=== PATIENT | female | born 1995 | race Caucasian/White ===

== ENCOUNTER 2020-08-09 17:40 | Inpatient (IN) | payer OTHER, SELFPAY ==
[2020-08-09] VITALS (14 sets, daily range): BP systolic 86–123; BP diastolic 54–93; PULSE 72–104; RESP 18; TEMP 36.4; BMI 25.4
[2020-08-09 18:51] LABS: Basophils Percent Auto 0.4 % (0.2-1.2); Eosinophils Absolute Auto 0.1 K/mm3 (0-0.3); Eosinophils Percent Auto 0.9 % (0-4.4); Hematocrit 34.8 % (37.0-47.0); Hemoglobin 11.9 g/dL (12.0-15.0); Immature Granulocyte Percent A 0.9 % (0-0.5); Lymphocytes Absolute Auto 1.81 K/mm3 (0.9-3.2); Lymphocytes Percent Auto 16.8 % (18.3-44.2); Mean Corpuscular HGB Conc 34.2 g/dl (32-36); Mean Corpuscular Hemoglobin 30.1 pg (26-34); Mean Corpuscular Volume 87.9 fl (80-100); Monocytes Absolute Auto 0.9 K/mm3 (0.1-0.6); Monocytes Percent Auto 8.7 % (2.6-8.5); Neutrophils Absolute Auto 7.8 K/mm3 (1.3-6.7); Neutrophils Percent Auto 72.3 % (45.5-73.1); Platelet Count Result 178 k/mm3 (150-375); Red Blood Count 3.96 M/mm3 (4.2-5.4); Red Cell Distribution Width 13.2 % (11.5-14.5); White Blood Count 10.8 K/mm3 (4.5-10.0)
[2020-08-09] MEDS: DINOPROSTONE 10 MG VAG INSERT VAGINAL (18:56)
--- NOTE | 2020-08-09 19:09 | LDADM ---
This patient, Naheed Padilla, was admitted to Labor/Delivery/Recovery 104 on 08/09/20 at 17:40. Plans for labor, pain management and were discussed with patient. Patient/family oriented to hospital policies and general routines including ID bracelet, bed and alarms, visiting hours, pain management, procedures, bathroom and other care routines, personal items, smoking policy, room service/diet and guest tray routines, infant security routines, and visiting hours. Patient/Family are encouraged to report perceived risks to care and to ask questions if they do not understand what they are told or what they should do. See OBIX for further documentation.
[2020-08-09 19:43] LABS: HIV 1/2 Ab P24 Ag Result Negative (Negative)
[2020-08-09] MEDS: ZOLPIDEM TARTRATE (*CRX) 5 MG TABLET PO (22:02)
[2020-08-10] VITALS (72 sets, daily range): BP systolic 56–132; BP diastolic 27–97; PULSE 62–127; RESP 16–18; TEMP 36.3–36.9; O2SAT 72–100
--- NOTE | 2020-08-10 01:51 | WPDANESEPP ---
Anes - Eval Pre Procedure Procedure: Labor epidural Date/Time: 08/10/20 01:51 Surgeon: Susie Preop Diagnosis: Abd pain with contractions Pre Op Diagnosis: IOL Patient Data Age: 25 Gender: F Height: 5 ft 7 in Weight: 73.6 kg Last Vital Signs Temp 97.5 F L 08/10/20 01:37 Pulse 92 08/10/20 01:39 Resp 18 08/10/20 01:37 BP 101/61 08/10/20 01:39 Allergies Allergy/AdvReac Type Severity Reaction Status Date / Time No Known Allergies Allergy Verified 08/06/20 11:06 Home Medications Medication Instructions Recorded Confirmed Type prenat.vits,brianna,[id number]-phbhl 1 tablet PO DAILY 12/19/19 08/09/20 History ergocalciferol (vitamin D2) 1,250 1,250 mcg PO 2XW #24 cap 02/27/20 08/09/20 Rx mcg (50,000 unit) capsule Laboratory Tests 08/09/20 08/09/20 08/09/20 18:45 18:45 18:45 WBC 10.8 K/mm3 H K/mm3 (4.5-10.0) RBC 3.96 M/mm3 L M/mm3 (4.2-5.4) Hgb 11.9 g/dL L g/dL (12.0-15.0) Hct 34.8 % L % (37.0-47.0) MCV 87.9 fl fl (80-100) MCH 30.1 pg pg (26-34) MCHC 34.2 g/dl g/dl (32-36) RDW 13.2 % % (11.5-14.5) Plt Count 178 k/mm3 k/mm3 (150-375) MPV 11.0 fl H fl (7.4-10.4) Immature Gran % (Auto) 0.9 % H % (0-0.5) Neut % (Auto) 72.3 % % (45.5-73.1) Lymph % (Auto) 16.8 % L % (18.3-44.2) Stephens % (Auto) 8.7 % H % (2.6-8.5) Eos % (Auto) 0.9 % % (0-4.4) Baso % (Auto) 0.4 % % (0.2-1.2) Lymph # (Auto) 1.81 K/mm3 K/mm3 (0.9-3.2) Stephens # (Auto) 0.9 K/mm3 H K/mm3 (0.1-0.6) Eos # (Auto) 0.1 K/mm3 K/mm3 (0-0.3) Baso # (Auto) 0.0 K/mm3 K/mm3 (0.0-0.1) Abs Immat Gran (auto) 0.10 K/mm3 H K/mm3 (0.00-0.031) Absolute Neuts (auto) 7.8 K/mm3 H K/mm3 (1.3-6.7) Absolute Nucleated RBC 0.0 K/mm3 K/mm3 (0.0-0.012) Nucleated RBC % 0.0 % % (0.0-0.2) RPR Pending HIV 1&2 Ab/P24 Ag 4thGn Negative (Negative) Blood Type Antibody Screen 08/09/20 18:45 WBC RBC Hgb Hct MCV MCH MCHC RDW Plt Count MPV Immature Gran % (Auto) Neut % (Auto) Lymph % (Auto) Stephens % (Auto) Eos % (Auto) Baso % (Auto) Lymph # (Auto) Stephens # (Auto) Eos # (Auto) Baso # (Auto) Abs Immat Gran (auto) Absolute Neuts (auto) Absolute Nucleated RBC Nucleated RBC % RPR HIV 1&2 Ab/P24 Ag 4thGn Blood Type A Positive Antibody Screen Negative Patient hx anesthesia problems: none Family hx anesthesia problems: none [facility] Past Medical History Medical History (Updated 08/10/20 @ 01:52 by Jay Cruz CRNA) History of smoking Over weight UTI in Family History Family History Grandparent Diabetes mellitus Liver cancer Social History Social History Smoking status: Former smoker Tobacco type: cigarettes Second hand tobacco smoke exposure: Yes Smoking end date: 12/17/19 Alcohol intake: never Substance use: never Spiritual care concerns: No Exam Day of Procedure 08/10/20 01:51 Patient weight: overweight Airway: Mallampati scale class II Neurological: alert and oriented
[2020-08-10] MEDS: OXYTOCIN 30 UNITS/NS 500 ML 30 UNITS/500 ML BAG 6 UNITS IV CONT (07:37)
--- NOTE | 2020-08-10 08:58 | PM.OBPNLAB ---
Pain Control Date/time seen: 08/10/20 08:58 FHT 145 Cat 1 cervix 2/50/-2 AROM initial bloody then stream of large clear fluid Continue pitocin.
[2020-08-10] MEDS: fentaNYL CITRATE INJ (*CRX) 100 MCG/2 ML VIAL 50 MCG IV PUSH (09:07)
[2020-08-10 09:27] LABS: Rapid Plasma Reagin Non-Reactive (NonReactive)
[2020-08-10] MEDS: ONDANSETRON INJ 4 MG/2 ML VIAL IV PUSH (11:39)
[2020-08-10] MEDS: LACTATED RINGERS 1,000 ML 125 ML IV CONT (13:00)
[2020-08-10] MEDS: OXYTOCIN 30 UNITS/NS 500 ML 30 UNITS/500 ML BAG 125 UNITS IV CONT (15:43)
--- NOTE | 2020-08-10 16:11 | PM.IMHP ---
H&P: HPI History of Present Illness Date/Time: 08/10/20 16:11 Pt at 39 weeks with an EDC of 5/28 by LMP consistent with first trimester ultrasound. PNC signficant for 2VC. She has been getting serial ultrasounds which has shown adequate growth and surveillance testing which has been normal. She has been recommended for delivery at 39-40 weeks due to the history of 2VC. Labs reviewed. GBS neg. Chief Complaint: Medical induction of labor. Review of Systems Review of Systems: All systems reviewed & are unremarkable except as noted in HPI and below Constitutional: Constitutional: Reports no additional constitutional complaints and Denies headache(s) Eyes: Eyes: Denies spots in vision ENT: Reports system reviewed and no additional complaints, except as documented and Denies headache(s) Cardiovascular: Cardiovascular: Denies chest pain and Denies dyspnea Respiratory: Respiratory: Denies dyspnea Gastrointestinal: Gastrointestinal: Reports no additional gastrointestinal complaints Genitourinary: Genitourinary: Reports amenorrhea Musculoskeletal: Musculoskeletal: Reports no additional musculoskeletal complaints Integumentary/Breasts: Skin/Breast: Denies breast mass and Denies rash Neurologic: Denies headache(s) Psychiatric: Psychiatric: Reports no additional psychiatric complaints COUNT INCLUDES THE [facility] Past Medical History Medical History History of smoking Over weight UTI in Family History Family History Grandparent Diabetes mellitus Liver cancer Social History Social History Smoking status: Former smoker Tobacco type: cigarettes Second hand tobacco smoke exposure: Yes Smoking end date: 12/17/19 Alcohol intake: never Substance use: never Spiritual care concerns: No Meds Home Medications and Allergies Home Medications Medication Instructions Recorded Confirmed Type prenat.vits,brianna,[id number] 1 tablet PO DAILY 12/19/19 08/09/20 History ergocalciferol (vitamin D2) 1,250 1,250 mcg PO 2XW #24 cap 02/27/20 08/09/20 Rx mcg (50,000 unit) capsule Allergies Allergy/AdvReac Type Severity Reaction Status Date / Time No Known Allergies Allergy Verified 08/06/20 11:06 Vital Signs Vital Signs - 24 hr 05/23/21 17:59 08/09/20 18:15 08/09/20 18:30 Temperature Pulse Rate 104 H 103 H 104 H Respiratory Rate Blood Pressure 122/86 114/75 123/87 Pulse Oximetry 08/09/20 18:55 08/09/20 19:15 08/09/20 19:25 Temperature 97.6 F Pulse Rate 72 82 Respiratory Rate 18 Blood Pressure 86/60 L 102/66 Pulse Oximetry 08/09/20 19:30 08/09/20 19:45 08/09/20 20:00 Temperature Pulse Rate 84 81 91 Respiratory Rate Blood Pressure 105/72 104/69 97/54 L Pulse Oximetry 08/09/20 20:15 08/09/20 20:30 08/09/20 20:45 Temperature Pulse Rate 88 84 85 Respiratory Rate Blood Pressure 99/57 L 115/93 H 100/64 Pulse Oximetry 08/09/20 21:00 08/09/20 21:40 08/10/20 01:37 Temperature 97.6 F 97.5 F L Pulse Rate 84 Respiratory Rate 18 18 Blood Pressure 108/67 Pulse Oximetry 08/10/20 01:39 08/10/20 07:03 08/10/20 07:15 Temperature Pulse Rate 92 90 100 Respiratory Rate Blood Pressure 101/61 107/74 110/78 Pulse Oximetry 08/10/20 07:30 08/10/20 07:45 08/10/20 08:00 Temperature 97.3 F L Pulse Rate 88 82 82 Respiratory Rate Blood Pressure 114/72 114/65 114/73 Pulse Oximetry 08/10/20 08:15 08/10/20 09:15 08/10/20 09:30 Temperature Pulse Rate 71 84 69 Respiratory Rate Blood Pressure 108/65 115/79 119/74 Pulse Oximetry 08/10/20 09:45 08/10/20 10:00 08/10/20 10:15 Temperature 98.4 F Pulse Rate 81 82 78 Respiratory Rate Blood Pressure 125/77 111/68 132/87 Pulse Oximetry 08/10/20 10:24 08/10/20 10:26 08/10/20
--- NOTE | 2020-08-10 16:33 | PM.OBPRVD ---
OB - Delivery Note Procedure Delivery date: 08/10/20 Procedure: Spontaneous vaginal delivery. events: Labor Induction (2 Vessel cord.) Induction method: per misoprostol protocol Delivery augmentation: rupture of membranes and pitocin Delivery monitor: external FHT Route of delivery: Laceration Description: Vaginal - 1st Degree Quantitative Blood Loss (ml): 350 Anesthesia type: Epidural Disposition: floor Narrative: Patient admitted on 08/09/2020 for Cervidil for medical induction of labor due to history of a of 2 vessel cord. Her cervix on admission was closed and thick. Cervidil was taken out after 12 hours. Pitocin was started. Her cervical exam on 08/10 was to 50- 2. She had assisted rupture of membranes at approximately 8:45 a.m. with clear fluid noted. She progressed into active labor. She requested an epidural and it was placed. She progressed to complete. She was allowed to have the baby descend due to her not feeling much with her epidural. She pushed for 30 minutes and delivered a male infant in the JAQUELINE presentation. The infant was vigorously crying upon delivery and placed on maternal abdomen. Delayed cord clamping for 40 seconds until the post stations ceased. The cord was then clamped and cut. Cord gases and cord blood was obtained. The placenta delivered spontaneously and intact. Two vessel cord noted. Will send this to pathology. She sustained a vaginal laceration at the posterior vagina which was repaired with [id number] suture sutures of 3.0 Vicryl. She sustained a stretch tear at the superior labia minora bilaterally hemostasis noted no sutures needed. Patient tolerated procedure well. EBL 350 cc. [place] Baby Date of : 08/10/20 Time of : 15:21 Weeks of gestation at delivery: 39 gender: Male Weight (pounds): 8 Weight (ounces): 4 presentation: vertex position: Right Occiput Anterior Placenta delivery description: Spontaneous cord vessel description: 2 Vessels score one minute: 9 score five minutes: 9
[2020-08-10] MEDS: IBUPROFEN 600 MG TABLET PO (18:32)
--- NOTE | 2020-08-10 19:19 | OBPPTRN ---
Patient transferred to post room #290 via wheelchair. Support person present. Oriented to unit, room, information board, rooming in, admission packet and security measures. Patient verbalizes understanding.
--- NOTE | 2020-08-10 19:19 | OBPPTRN ---
Patient transferred to post room # via ( ). Support person present. Oriented to unit, room, information board, rooming in, admission packet and security measures. Patient verbalizes understanding.
[2020-08-11] VITALS: BP 105/63; PULSE 76; RESP 16; TEMP 36.7; O2SAT 100
[2020-08-11] MEDS: IBUPROFEN 600 MG TABLET PO ×3 (00:33→17:10)
[2020-08-11] MEDS: ACETAMINOPHEN 325 MG TABLET 650 MG PO ×2 (00:33→14:03)
[2020-08-11 04:00] VITALS: BP 100/55; PULSE 89; RESP 16; TEMP 36.8; O2SAT 99
[2020-08-11 06:04] LABS: Hematocrit 28.3 % (37.0-47.0); Hemoglobin 9.3 g/dL (12.0-15.0)
[2020-08-11 08:00] VITALS: BP 94/52; PULSE 72; RESP 16; TEMP 36.6; O2SAT 97
--- NOTE | 2020-08-11 08:57 | WPDANLDPN2 ---
Anes-Prog Note L&D Date/Time: 08/11/20 08:57 Comfortable throughout: labor and delivery Neuraxial method: epidural Epidural/Spinal procedure site: clean & non-tender Neuro status: Neuro function grossly intact. Cardiovascular status: normal Respiratory status: normal Airway patency: baseline Mental status: baseline Post-Op hydration status: normal Vital Signs: Last Vital Signs Temp 36.8 C 08/11/20 04:00 Pulse 89 08/11/20 04:00 Resp 16 08/11/20 04:00 BP 100/55 L 08/11/20 04:00 Pulse Ox 99 08/11/20 04:00 Pain score (VAS): 3 I/O: Intake & Output 08/10/20 08/11/20 08/11/20 23:59 07:59 15:59 Intake Total 1999 Balance 1999 Post-procedural complaints: none Patient feedback: Patient satisfied with anesthetic care.
[2020-08-11] MEDS: POLYSACCHARIDE IRON COMPLEX 150 MG CAPSULE PO ×2 (09:08→17:10)
[2020-08-11] MEDS: MULTIVIT/MIN/PREN/FOL AC/IRON TABLET 1 TAB PO (09:08)
[2020-08-11] MEDS: DOCUSATE SODIUM 100 MG CAPSULE PO ×2 (09:11→17:10)
--- NOTE | 2020-08-11 09:30 | PC.NURSE ---
Mother called out for assist with feeding. Mother reports she is using a nipple shield for all feedings, unable to draw nipple in due flat nipples. Both nipples are reddened and bruised. Mother reports she has pain with feeding and pumping. Reviewed infant feeding cues, frequencies, duration of feedings, feeding elimination flow sheet, and signs of adequate intake. Demonstrated stimulation techniques to wake infant for feeding. Assisted with infant to breast. Reviewed positioning/alignment in cross cradle, holding breast in ?U? hold and guided asymmetrical latch on. Attempted infant to breast using nipple shield, infant unable to draw nipple in. Mother is grimacing and reporting pain crying out. Attempted a few times in each position on each breast. Unable to obtain a comfortable latch to mother. Discussed feeding options at this time. Mother chooses to pump and bottle feed EBM/formula. Nipple care reviewed of lanolin after feedings, warm compresses and gel pads as needed. Reviewed breast pump care and usage, pumping schedule, nipple care, and collection and storage of breast milk. Encouraged [id number], breast massage and manual expression to stimulate supply. Assessed patient for correct flange size, placement and draw. Patient verbalizes and demonstrates understanding of instructions. Feeding Plan will be to pump and bottle feed only at this time.
[2020-08-11 12:45] VITALS: BP 90/43; PULSE 71; RESP 16; TEMP 36.8; O2SAT 98
[2020-08-11 20:00] VITALS: BP 107/62; PULSE 85; RESP 16; TEMP 36.8; O2SAT 100
--- NOTE | 2020-08-11 21:02 | PM.OBPNVD ---
OB - PN: Subj Subjective Date/time seen: 08/11/20 1045 She is attempting and pumping. Lochia moderate. No lightheadedness or dizziness. Has some lower back pain. Tylenol and Motrin helps. Patient comments: pain well controlled, tolerating diet and other (Decreasing lochia.) baby status: doing well OB - PN: Obj Data Labs CBC & Chem 7: 08/11/20 03:46 Labs: Laboratory Results - last 24 hr 08/11/20 03:46 Hgb 9.3 L Hct 28.3 L OB - PN A/P Plan day: 1 Plan: routine care Comments: Patient doing well. Asymptomatic anemia. Continue PNV and iron supplementation. Time Spent With Patient Time: Total time spent is greater than 50% in coordination of care (as documented) at patient's floor/unit and/or counseling patient: Exam Psych: Affect: normal affect Other: Abd: fundus firm below umbilicus, nontender Perineum: healing Ext: nontender
[2020-08-12] MEDS: IBUPROFEN 600 MG TABLET PO ×2 (04:01→10:10)
[2020-08-12 08:00] VITALS: PULSE 74; RESP 16; O2SAT 97
--- NOTE | 2020-08-12 08:45 | PC.NURSE ---
Consult with pt., mother states she has not pumped regularly during the night. Reviewed the importance of stimulation for milk supply. is eagerly bottle feeding without issues. Reviewed breast pump care and usage, pumping schedule, nipple care, and collection and storage of breast milk. Encouraged [id number], breast massage and manual expression to stimulate supply. Mother has a double electric pump for home use. Mother's plans are to pump and bottle feed until her milk is in and nipples are healed and not tender. Mother states she will call for appointment to return infant to breast. Advised mother should increase infant feedings to as much as he desires per feeding. Mother is feeding as required and waking infant to feed if needed. is currently meeting outcomes for weight, output, jaundice and feeding frequencies. Mother states she feels confident to continue pumping and bottle feeding at home. Reviewed transition to breast milk, signs of adequate intake, and engorgement/relief. Instructed to call ICP if intake/output less than required. Reviewed regular medications mother is taking. Information provided per Pilar. Reviewed community resources on the [facility] website and in the Mom/Baby guide. Information on outpatient services provided. Mother has no further questions at this time.
[2020-08-12 08:55] VITALS: BP 100/59; PULSE 74; RESP 16; TEMP 36.7; O2SAT 97
[2020-08-12] MEDS: POLYSACCHARIDE IRON COMPLEX 150 MG CAPSULE PO (09:52)
[2020-08-12] MEDS: MULTIVIT/MIN/PREN/FOL AC/IRON TABLET 1 TAB PO (09:52)
[2020-08-12] MEDS: ACETAMINOPHEN 325 MG TABLET 650 MG PO (10:11)
--- NOTE | 2020-08-12 11:15 | P.PNOB_ITS ---
OB - PN: Subj Subjective Date/time seen: 08/12/20 11:15 She pumping and supplementing. Patient comments: pain well controlled, tolerating diet and other (Decreasing lochia.) [place] baby status: doing well OB - PN: Obj Data Labs CBC & Chem 7: 08/11/20 03:46 OB - PN A/P Plan day: 2 Plan: discharge home and other Comments: Patient doing well. Follow up in 2 weeks. Discharge instructions provided. Time Spent With Patient Time: Total time spent is greater than 50% in coordination of care (as documented) at patient's floor/unit and/or counseling patient: Time with patient: less than 15 minutes Exam Const: General: comfortable and no acute distress Eyes: General: appearance normal, both eyes and all related structures Resp: Effort & Inspection: normal respiratory effort Psych: Affect: normal affect Other: Abd: fundus firm below umbilicus, nontender Perineum: healing Ext: nontender
--- NOTE | 2020-08-12 11:17 | P.DS_ITS ---
DS: Admitting Diagnosis Admitting Diagnosis Admitting Diagnosis: Medical induction of labor for history of 2 vessel cord with fetus. DS: Discharge Diagnosis Discharge Diagnosis (1) Delivery normal: Code(s): O80 - Encounter for full-term uncomplicated delivery Status: Acute OB - DS: Summary OB Procedures : NST and Ultrasound OB Procedures Intrapartum: Spontaneous Vag Delivery OB Procedures: : None Peripartum Data Delivery Method: Natural Vaginal Laceration Description: Vaginal - 1st Degree Procedures: 1. Spontaneous vaginal delivery 2. Assisted rupture of membranes. complications: none Status at Discharge Functional status at discharge: independent ambulation Overall status at discharge: patient is progressing back to baseline Time Spent with Patient Time attestation: Total time spent providing and/or coordinating discharge services: Exam Const: General: comfortable and no acute distress Eyes: General: appearance normal, both eyes and all related structures Resp: Effort & Inspection: normal respiratory effort Psych: Affect: normal affect Other: Abd: fundus firm below umbilicus, nontender Perineum: healing Ext: nontender DS: Data Data Completed and Pending Pending studies at discharge: Pending at discharge 08/10/20 16:06 Surgical [PTH] Routine Discharge Plan Discharge Attending physician on discharge: Marin Richards Consulting providers: Jay Cruz Discharging Clinician: Marin Richards Anticipated Discharge Date/Time: 08/12/20 07:40 Patient Disposition: Home, Self-Care Activity: may shower, no straining, pelvic rest and other - see discharge instru ctions Diet: regular Discharge Instructions: Pelvic rest for 4-6 weeks. May take over the counter Ibuprofen or Tylenol for pain. Call if saturating more than a pad an hour, leg redness, pain and swelling, temperature>100.4. No strenuous activity. Take over the counter SloFe once a day. May take over the counter Colace 100mg daily as needed for constipation. Patient Instructions: Antibiotic Form Stand Alone Forms: General Discharge Information Follow-up/Referrals: Marin Richards MD [Physician] - 2 Weeks Discharge Medications: Continued prenat.vits,brianna,nhn-[id number] Tablet 1 tablet PO DAILY RF: 0 ergocalciferol (vitamin D2) [Vitamin D2] 1,250 mcg (50,000 unit) capsule 1,250 mcg PO 2XW Qty: 24 RF: 2 Date of admission: 08/09/20 17:40 Primary Care Provider: Hong,Maria Luisa Centeno Admitting Provider: Marin Richards Attending physician on admission: Marin Richards Condition: Stable
--- NOTE | 2020-08-12 12:00 | PC.NURSE ---
Patient viewed the discharge video Mother & Baby Care, The First Two Weeks . Patient was given the opportunity and encouraged to ask questions. Patient verbalized understanding of information shared and has been given the mother/baby guide for home reference.
[2020-08-12] MEDS: MEASLES,MUMPS,RUBELLA VACCINE 0.5 ML VIAL SUB-Q (12:27)
[2020-08-14 10:49] VITALS: BP 108/69; PULSE 85; RESP 20; TEMP 37.1; O2SAT 100
== END 2020-08-12 14:00 | disposition home or self-care (01) | DRG 560 ==
LOC: ANHLDR 17:58 → ANHOB2 08-10 19:34
PROVIDERS: Admitting Provider Obstetrics & Gynecology; PCP Internal Medicine; Visit Provider Obstetrics & Gynecology
DX: O69.89X0 Labor and delivery complicated by other cord complications, not applicable or unspecified (principal); Z37.0 Single live birth; Z3A.39 39 weeks gestation of pregnancy; O36.8330 Maternal care for abnormalities of the fetal heart rate or rhythm, third trimester, not applicable or unspecified; O70.0 First degree perineal laceration during delivery
CPT/HCPCS: 36415; 85014; 85018; 85025; 86592; 86703; 86850; 86900; 86901; 88307; 90710; A9270; G0432; J2405; J2590; J2795; J3010; J7120

== ENCOUNTER 2020-10-08 11:20 | Emergency (ER) | payer OTHER, SELFPAY ==
[2020-10-08 11:30] VITALS: BP 106/61; PULSE 85; RESP 16; TEMP 36.8; O2SAT 98
--- NOTE | 2020-10-08 11:41 | ED.URI ---
HPI - URI/Sore Throat General Chief Complaint: Upper Respiratory Infection Stated Complaint: Sore throat, headache, fever Time Seen by Provider: 10/08/20 12:10 Source: patient and RN notes reviewed Mode of arrival: ambulatory Limitations: no limitations History of Present Illness HPI Narrative: 25-year-old female presents the concern for 4-day history of sore throat, headache, nasal congestion, postnasal drainage. Reports one episode of fever. Reports she is breast-feeding an 8-week-old . She denies any oaxr-phq-fldfzaj remedies. She denies shortness of breath, loss of sense of taste or smell, body aches, chills, sweats. MD elicited complaint: nasal congestion Related Data Home Medications Medication Instructions Recorded Confirmed prenat.vits,brianna,gww-lkef-vrqtu 1 tablet PO DAILY 12/19/19 09/15/20 ferrous sulfate 325 mg (65 mg 325 mg PO DAILY 09/15/20 09/15/20 iron) tablet Allergies Allergy/AdvReac Type Severity Reaction Status Date / Time No Known Allergies Allergy Verified 09/15/20 09:32 Review of Systems Review of Systems: Narrative: CONSTITUTIONAL: Reports malaise, fever. Denies chills, sweats EYES: Denies visual changes, redness, or discharge. ENT: Reports rhinorrhea, congestion, sore throat. Denies sinus pain, otalgia CARDIOVASCULAR: Denies chest pain, palpitations, or edema. RESPIRATORY: Reports cough. Denies dyspnea. GASTROINTESTINAL: Denies abdominal pain, nausea, vomiting, diarrhea SKIN: Denies rash or itching. MUSCULOSKELETAL: Denies myalgia. NEUROLOGIC: Reports headache. All systems reviewed & are unremarkable except as noted in HPI and below PMFSH Past Medical History Medical History Fibroids History of smoking Over weight UTI in Family History Family History Grandparent Diabetes mellitus Liver cancer Social History Social History Smoking status: Never smoker Tobacco type: cigarettes Second hand tobacco smoke exposure: Yes Smoking end date: 12/17/19 Alcohol intake: never Substance use: never Spiritual care concerns: No Comments At time of signature, agree with nursing past medical, surgical, social and family history. There is no relevant family history pertinent to the presenting complaint Exam Narrative: Exam Narrative: GENERAL: Well-appearing, well-nourished, and in no acute distress. HEAD: Normocephalic EYES: PERRLA, conjunctivae clear ENT: Nares clear, turbinates edematous and erythematous, clear discharge. Mucous membranes moist. TM pearly manley with dull light reflex bilaterally; no tragal tenderness. Oropharynx not erythematous without lesions. Tonsils not enlarged and without exudate, no drooling, no hoarseness, no trismus, uvula midline. NECK: Supple. No lymphadenopathy CHEST: Clear to auscultation, breath sounds equal. No wheezing, rhonchi, rales, or stridor. No respiratory distress, speaks in full sentences. HEART: Regular rate and rhythm. No murmur heard. SKIN: Warm, dry, no rash. NEURO: Alert and oriented x3. PSYCH: Normal mood and affect Course Course Emergency Course: Patient is aware of diagnosis, understands and agrees to treatment plan. Anticipatory guidance given. Patient agrees to follow-up as directed and is aware of reasons to seek care at the emergency department. Portions of this record may have been created with voice recognition software Vital Signs Vital signs: Vital Signs Temperature 98.3 F 10/08/20 11:30 Pulse Rate 85 10/08/20 11:30 Respiratory Rate 16 10/08/20 11:30 Blood Pressure 106/61 10/08/20 11:30 Pulse Oximetry 98 10/08/20 11:30 Temperature 98.3 F 10/08/20 11:30 Pulse Rate 85 10/08/20 11:30 Respiratory Rate 16 10/08/20 11:30 Blood Pressure 106/61 10/08/20 11:30 Pulse Oximetry 98 10/08/20 11:30 Reviewe
[2020-10-09 17:52] LABS: SARS-CoV-2 RNA PCR Negative
== END 2020-10-08 12:30 | disposition home or self-care (01) ==
PROVIDERS: Emergency Provider Nurse Practitioner; PCP Internal Medicine
DX: J06.9 Acute upper respiratory infection, unspecified (principal); Z20.822 Contact with and (suspected) exposure to COVID-19
CPT/HCPCS: 87081; 87426; 87880; 99213; C9803; G0463; U0003; U0005

== ENCOUNTER 2021-02-14 19:32 | Emergency (ER) | payer OTHER, SELFPAY ==
[2021-02-14 19:43] VITALS: BP 110/77; PULSE 88; RESP 18; TEMP 37.1; O2SAT 98
[2021-02-14 19:45] VITALS: O2SAT 98
--- NOTE | 2021-02-14 19:47 | ED.GENADULT ---
HPI - General Adult General Chief complaint: Upper Respiratory Infection Stated complaint: light headed,wheezing,not feeling well Time Seen by Provider: 02/14/21 19:47 Source: patient Mode of arrival: ambulatory Limitations: no limitations History of Present Illness HPI narrative: 26-year-old female patient presents to the [facility] with complaints of cold symptoms for the past 2 to 3 days. Patient states that she was recently exposed to her sister who came up positive about 3 days ago. Patient states she has had a sore throat, body aches and a cough but more specifically when she lays down. 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 Patient states she is not vaccinated at all against Covid. Denies getting a flu shot this year. Related Data Allergies Allergy/AdvReac Type Severity Reaction Status Date / Time No Known Allergies Allergy Verified 10/08/20 12:34 Review of Systems Review of Systems: CONSTITUTIONAL: Denies fever, chills, or sweats. Positive body aches EYES: Denies visual changes, redness, or discharge. ENT: Denies rhinorrhea, congestion, positive sore throat, denies otalgia. CARDIOVASCULAR: Denies chest pain, palpitations, or edema. RESPIRATORY: Positive cough or dyspnea. GASTROINTESTINAL: Denies abdominal pain, nausea, vomiting, or diarrhea. GENITOURINARY: Denies dysuria or hematuria. SKIN: Denies rash or itching. MUSCULOSKELETAL: Denies back pain, joint pain, or myalgia. NEUROLOGIC: Denies headache, numbness, or weakness. PSYCHIATRIC: Denies anxiety or depression. [facility] Past Medical History Medical History Fibroids History of smoking Over weight UTI in Family History Family History Grandparent Diabetes mellitus Liver cancer Social History Social History Smoking status: Never smoker Tobacco type: cigarettes Second hand tobacco smoke exposure: Yes Smoking end date: 12/17/19 Alcohol intake: never Substance use: never Spiritual care concerns: No Comments At the time of my signature I agree with nursing past medical history, surgical, social, and family history. There is no relevant family history pertinent to the presenting complaint. Exam Narrative: GENERAL: Well-appearing, well-nourished, and in no acute distress. HEAD: Normocephalic, atraumatic. EYES: PERRLA and EOMI. ENT: Nares with erythema and edema noted bilaterally, no rhinorrhea or epistaxis. Mucous membranes moist. Posterior pharynx with no erythema, tonsillar injury, exudates or lesions present. Bilateral TMs are clear with no erythema or foreign bodies in the canal. NECK: Supple. No lymphadenopathy CHEST: Clear to auscultation. No respiratory distress. HEART: Regular rate and rhythm. No murmur heard. Normal peripheral pulses. ABDOMEN: Soft, nontender, nondistended, normal active bowel sounds. EXTREMITIES: Normal range of motion. No edema. SKIN: Warm, dry, no rash. NEURO: No focal deficits. Alert and oriented x3. Course Vital Signs Vital signs: Vital Signs Temperature 37.1 C 02/14/21 19:43 Pulse Rate 88 02/14/21 19:43 Respiratory Rate 18 02/14/21 19:43 Blood Pressure 110/77 02/14/21 19:43 Pulse Oximetry 98 02/14/21 19:43 Temperature 37.1 C 02/14/21 19:43 Pulse Rate 88 02/14/21 19:43 Respiratory Rate 18 02/14/21 19:43 Blood Pressure 110/77 02/14/21 19:43 Pulse Oximetry 98 02/14/21 19:45 Vital signs reviewed Medical Decision Making Differential Diagnosis Differential Diagnosis: Differential diagnosis: Allergic rhinitis, chronic sinusitis, tonsillitis, acute sinusitis, infectious mononucleosis, seasonal influenza, pertussis, diphtheria, meningococcal disease, viral syndrome, viral bronchitis, RSV, COVID-19 Cussed with patient that since she is no
[2021-02-16 20:04] LABS: SARS-CoV-2 RNA PCR Negative
== END 2021-02-14 20:19 | disposition home or self-care (01) ==
PROVIDERS: Emergency Provider Nurse Practitioner Family; PCP Internal Medicine
DX: J06.9 Acute upper respiratory infection, unspecified (principal); Z20.822 Contact with and (suspected) exposure to COVID-19; Z87.891 Personal history of nicotine dependence
CPT/HCPCS: 87081; 87804; 87880; 99213; C9803; G0463; U0003; U0005